=== PATIENT | female | born 1995 | race African-American/Black ===

== ENCOUNTER 2019-01-30 11:39 | Emergency (ER) | payer MEDICAID ==
[~2019-01-30] VITALS: Ht 170.2 cm; Wt 102.1 kg
[2019-01-30] MEDS ORDERED: NKM (11:50)
--- NOTE | 2019-01-30 11:55 | NUR ---
ED Nurse Note: Patient walked into ED from home c/o abdominal cramping and bleeding since this morning. patient reports she recently visited other hospital ED for the same reason around 01/18/19 and was discharged from ED. patient reports her next OBGYN appointment is on 02/04/19. patient reports she is 3 1/2 months . 1 para 0. patient is alert awake x4 ambulatory, breathing unlabored and even, placed patient on a hospital gown, call light within reach.
--- NOTE | 2019-01-30 12:18 | NUR ---
Isaiah parkinson in EDM - 01/30/19 at 1218 by SOBEIDAO ED Nurse Note: UA at bedside.
--- NOTE | 2019-01-30 12:18 | NUR ---
ED Nurse Note: Ultrasound at bedside. blood and urine sent to lab
[2019-01-30 13:03] LABS: APPEARANCE,URINE SLIGHTLY CLOUDY; BILIRUBIN, URINE NEGATIVE (NEGATIVE); COLOR,URINE PALE YELLOW; GLUCOSE, URINE (UA) NEGATIVE (NEGATIVE); KETONES,URINE NEGATIVE (NEGATIVE); LEUKOCYTE ESTERASE ,URINE 3+ (NEGATIVE); NITRITE,URINE NEGATIVE (NEGATIVE); PH,URINE 6.5 (4.5-8.0); PROTEIN,URINE 1+ (NEGATIVE); UROBILINOGEN,URINE NORMAL MG/DL (0.0-1.0)
[2019-01-30 13:04] LABS: BASOPHILS % (AUTO) 0.7 % (0.0-2.0); EOSINOPHILS % (AUTO) 0.9 % (0.0-3.0); HEMATOCRIT 38.6 % (37.0-47.0); HEMOGLOBIN 13.1 G/DL (12.0-16.0); LYMPHOCYTES % (AUTO) 27.5 % (20.0-45.0); MEAN CORPUSCULAR VOLUME 88 FL (80-99); MONOCYTES % (AUTO) 6.2 % (1.0-10.0); NEUTROPHILS % (AUTO) 64.8 % (45.0-75.0); PLATELET COUNT 170 K/UL (150-450); RED BLOOD COUNT 4.41 M/UL (4.20-5.40); RED CELL DISTRIBUTION WIDTH 11.2 % (11.6-14.8); WHITE BLOOD COUNT 9.4 K/UL (4.8-10.8)
[2019-01-30 13:16] LABS: ANION GAP 8 mmol/L (5-15); BLOOD UREA NITROGEN 5 mg/dL (7-18); CALCIUM 9.3 MG/DL (8.5-10.1); CARBON DIOXIDE 24 MMOL/L (21-32); CHLORIDE 105 MMOL/L (98-107); CREATININE 0.7 MG/DL (0.55-1.30); SODIUM 137 MMOL/L (136-145)
[2019-01-30 13:17] LABS: ALANINE AMINOTRANSFERASE 84 U/L (12-78); ALBUMIN 3.3 G/DL (3.4-5.0); ALBUMIN/GLOBULIN RATIO 0.8 (1.0-2.7); ALKALINE PHOSPHATASE 59 U/L (46-116); ASPARTATE AMINO TRANSFERASE 35 U/L (15-37); BILIRUBIN,TOTAL 0.3 MG/DL (0.2-1.0)
[2019-01-30 13:30] VITALS: BP 121/72
[2019-01-30] MEDS ORDERED: NITROFURANTOIN100 M2 ORAL (13:32)
[2019-01-30] MEDS ORDERED: TYLENOL EXTRA500 MG ORAL (13:32)
[2019-01-30 13:42] VITALS: BP 116/74
--- NOTE | 2019-01-30 13:42 | NUR ---
ER DISCHARGE NOTE: Patient is cleared to be discharged per ERMD DR SILVEIRA, pt is aox4, on room air, with stable vital signs. pt was given dc and prescription instructions, pt was able to verbalize understanding, pt id band and iv site removed without complications. pt is able to ambulate with steady gait. pt took all belongings.
--- NOTE | 2019-01-30 15:04 | Diagnostic Imaging Report ---
Indication: Pelvic pain 24-year-old female Technique: Grayscale and duplex Doppler imaging of the pelvis performed utilizing a transabdominal scan and endovaginal scan. Comparison: None Findings: Examination demonstrates a single living IUP 13 weeks 3 days by crown-rump length, measured on endovaginal examination. heart tones demonstrated. Amniotic fluid appears appropriate. Cervix is closed. Cervix measures 2.8 cm in length. anatomy not assessed at this stage of . Placenta is posterior. Maternal ovaries appear normal. Left ovary is 3.7 x 1.4 x 2.4 cm. The right ovary is 2 x 2 0.5 x 2.4 cm. IMPRESSION: Single living intrauterine 13 weeks 4 days gestational age. Closed cervix. Normal amniotic fluid. Note: A negative ultrasound evaluation does not insure well-being or necessarily predict a positive outcome for the . monitoring including a nonstress test may be needed and clinical evaluation by WAITRESS is highly recommended.
--- NOTE | 2019-01-30 15:09 | Emergency Room Report ---
History of Present Illness General Chief Complaint: Complications Source: Patient Present Illness HPI 24-year-old female presents ED for evaluation. Complaining of spotting and cramping pain x1 day. Pain is trapping, 6 out of 10, nonradiating. States she is about 3-1/2 months . States she had an ultrasound done about 2 weeks ago which confirmed IUP. 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 Denies fevers or chills. Denies vomiting or diarrhea. No other aggravating relieving factors. Denies any other associated symptoms Allergies: Coded Allergies: No Known Allergies (Unverified , 01/30/19) Patient History Past Medical History: none Past Surgical History: none Pertinent Family History: none Social History: Denies: smoking, alcohol use, drug use Now: Yes - 3 1/2 months Immunizations: UTD Reviewed Nursing Documentation: PMH: Agreed; PSxH: Agreed Nursing Documentation-PMH Past Medical History: No Stated History Review of Systems All Other Systems: negative except mentioned in HPI Physical Exam Vital Signs Date Time Temp Pulse Resp B/P (MAP) Pulse Ox O2 Delivery O2 Flow Rate FiO2 01/30/19 11:47 98.2 78 19 116/74 (88) 98 Sp02 EP Interpretation: reviewed, normal General Appearance: no apparent distress, alert, GCS 15, non-toxic Head: normocephalic, atraumatic Eyes: bilateral eye normal inspection, bilateral eye PERRL ENT: hearing grossly normal, normal pharynx, no angioedema, normal voice Neck: full range of motion, supple/symm/no masses Respiratory: chest non-tender, lungs clear, normal breath sounds, speaking full sentences Cardiovascular #1: regular rate, rhythm, no edema Cardiovascular #2: 2+ carotid (R), 2+ carotid (L), 2+ radial (R), 2+ radial (L) , 2+ dorsalis pedis (R), 2+ dorsalis pedis (L) Gastrointestinal: normal bowel sounds, non tender, soft, non-distended, no guarding, no rebound Rectal: deferred Genitourinary: normal inspection, no CVA tenderness Musculoskeletal: back normal, gait/station normal, normal range of motion, non- tender Neurologic: alert, oriented x3, responsive, motor strength/tone normal, sensory intact, speech normal Psychiatric: judgement/insight normal, memory normal, mood/affect normal, no suicidal/homicidal ideation Reflexes: 3+ bicep (R), 3+ bicep (L), 3+ tricep (R), 3+ tricep (L), 3+ knee (R) , 3+ knee (L) Lymphatic: no adenopathy Medical Decision Making Diagnostic Impression: Primary Impression: Threatened Additional Impression: UTI (urinary tract infection) Qualified Codes: N39.0 - Urinary tract infection, site not specified ER Course Hospital Course 24-year-old female presents to ED complaining of lower abdominal pain with spotting. + Differential diagnoses include: gastrits, gastroenterits, ectopic , ovarian torsion/cyst, UTI Clinical course Patient placed on stretcher in ED. After initial history and physical I ordered labs, OB US Labs-no leukocytosis, electrolytes okay, beta hCG greater than 45,000, UA + bacteria OB ultrasound-IUP detected with heart rate Discussed findings with patient. Will discharge to home with close LITHOGRAPHED PLATE INSPECTOR follow-up. 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 Will discharge with antibiotics. Diagnosis - threatened , UTI Stable and discharged to home with Rx macrobid, tylenol. Followup with PMD/OB/ INSPECTOR ELEVATORS. Return to ED if symptoms recur or worsen Labs Test 01/30/19 12:00 White Blood Count 9.4 K/UL (4.8-10.8) Red Blood Count 4.41 M/UL (4.20-5.40) Hemoglobin 13.1 G/DL (12.0-16.0) Hematocrit 38.6 % (37.0-47.0) Mean Corpuscular Volume 88 FL (80-99) Mean Corpuscular Hemoglobin 29.8 PG (27.0-31.0) Mean Corpuscular Hemoglobin Concent 34.0 G/DL (32.0-36.0) Red Cell Distribution Width 11.2 % (11.6-14.8) Platelet Count 170 K/UL (150-450) Mean Platelet Volume 9.2 FL (6.5-10.1) Neutrophils (%) (Auto) 64.8 % (45.0-75.0) Lymphocytes (%) (Auto) 27.5 % (20.0-45.0) Monocytes (%) (Auto) 6.2 % (1.0-10.0) Eosinophils (%) (Auto) 0.9 % (0.0-3.0) Basophils (%) (Auto) 0.7 % (0.0-2.0) Urine Color Pale yellow Urine Appearance Slightly cloudy Urine pH 6.5 (4.5-8.0) Urine Specific [place] 1.010 (1.005-1.035) Urine Protein 1+ (NEGATIVE) Urine Glucose (UA) Negative (NEGATIVE) Urine Ketones Negative (NEGATIVE) Urine Blood 5+ (NEGATIVE) Urine Nitrite Negative (NEGATIVE) Urine Bilirubin Negative (NEGATIVE) Urine Urobilinogen Normal MG/DL (0.0-1.0) Urine Leukocyte Esterase 3+ (NEGATIVE) Urine RBC 15-20 /HPF (0 - 2) Urine WBC 15-20 /HPF (0 - 2) Urine Squamous Epithelial Cells Moderate /LPF (NONE/OCC) Urine Bacteria Moderate /HPF (NONE) Urine HCG, Qualitative Positive (NEGATIVE) Sodium Level 137 MMOL/L (136-145) Potassium Level 4.0 MMOL/L (3.5-5.1) Chloride Level 105 MMOL/L (98-107) Carbon Dioxide Level 24 MMOL/L (21-32) Anion Gap 8 mmol/L (5-15) Blood Urea Nitrogen 5 mg/dL (7-18) Creatinine 0.7 MG/DL (0.55-1.30) Estimat Glomerular Filtration Rate > 60 mL/min (>60) Glucose Level 81 MG/DL (74-106) Calcium Level 9.3 MG/DL (8.5-10.1) Total Bilirubin 0.3 MG/DL (0.2-1.0) Aspartate Amino Transf (AST/SGOT) 35 U/L (15-37) Alanine Aminotransferase (ALT/SGPT) 84 U/L (12-78) Alkaline Phosphatase 59 U/L (46-116) Total Protein 7.4 G/DL (6.4-8.2) Albumin 3.3 G/DL (3.4-5.0) Globulin 4.1 g/dL Albumin/Globulin Ratio 0.8 (1.0-2.7) Lipase 166 U/L (73-393) Human Chorionic Gonadotropin, Quant 23420 mIU/mL (1-6) CT/MRI/US Diagnostic Results CT/MRI/US Diagnostic Results : Imaging Test Ordered: OB US Impression IMPRESSION: Single living intrauterine 13 weeks 4 days gestational age. Closed cervix. Normal amniotic fluid. Note: A negative ultrasound evaluation does not insure well-being or necessarily predict a positive outcome for the . monitoring including a nonstress test may be needed and clinical evaluation by LITHOGRAPHED PLATE INSPECTOR is highly recommended. Last Vital Signs Date Time Temp Pulse Resp B/P (MAP) Pulse Ox O2 Delivery O2 Flow Rate FiO2 01/30/19 13:42 98.2 19 116/74 98 01/30/19 13:30 78 Status: improved Disposition: HOME, SELF-CARE Condition: Stable Scripts Acetaminophen* (TYLENOL EXTRA STRENGTH*) 500 Mg Tablet 500 MG ORAL Q8H PRN for Prn Headache/Temp > 101, #30 TAB 0 Refills Prov: Shin Gomez MD 01/30/19 Nitrofurantoin Monohyd/M-Cryst* (MACROBID 100 MG*) 100 Mg Capsule 100 MG ORAL EVERY 12 HOURS for 7 Days, CAP Prov: Shin Gomez MD 01/30/19 Referrals: NOT CHOSEN IPA/,REFERRING Patient Instructions: Dysuria, Threatened Miscarriage, [id number] Shin Gomez MD Jan 30, 2019 15:09
== END 2019-01-30 13:42 | disposition home or self-care (01) ==
LOC: EMR 12:30
DX: O20.0 Threatened abortion (principal); O23.41 Unspecified infection of urinary tract in pregnancy, first trimester; Z3A.13 13 weeks gestation of pregnancy
CPT/HCPCS: 36415; 76801; 76830; 80053; 81003; 81025; 83690; 84702; 85025; 87086; Z7502; 99284